=== PATIENT | male | born 1995 | race Caucasian/White ===

== ENCOUNTER 2019-08-30 07:00 | Emergency (ER) | payer SELFPAY ==
[2019-08-30] MEDS ORDERED: NORMAL SALINE 1000 ML 1,000 ML IV ONE (07:50)
[2019-08-30 08:30] LABS: ABSOLUTE LYMPHOCYTES (AUTO) 0.6 10^3/uL (0.5-4.7); ABSOLUTE MONOCYTES (AUTO) 0.4 10^3/uL (0.1-1.4); ABSOLUTE NEUT (AUTO) 3.1 10^3/uL (1.7-8.2); EOSINOPHILS % (AUTO) 0.2 % (0-6); HEMATOCRIT 41.5 % (37.9-51.0); HEMOGLOBIN 14.3 g/dL (13.5-17.0); LYMPHOCYTES % (AUTO) 14.3 % (13-45); MEAN CORPUSCULAR HEMOGLOBIN 31.1 pg (27.0-33.4); MEAN CORPUSCULAR HGB CONC 34.4 g/dL (32.0-36.0); MEAN CORPUSCULAR VOLUME 90 fl (80-97); MONOCYTES % (AUTO) 8.8 % (3-13); PLATELET COUNT 187 10^3/uL (150-450); RED BLOOD COUNT 4.59 10^6/uL (4.35-5.55); RED CELL DISTRIBUTION WIDTH 12.7 % (11.5-14.0); SEGMENTED NEUTROPHILS % (AUTO) 75.7 % (42-78); TOTAL CELLS COUNTED % (AUTO) 100 %; WHITE BLOOD COUNT 4.1 10^3/uL (4.0-10.5)
[2019-08-30 08:44] LABS: ALBUMIN 4.4 g/dL (3.5-5.0); ALKALINE PHOSPHATASE 42 U/L (38-126); ANION GAP 11 (5-19); ASPARTATE AMINO TRANSFERASE 36 U/L (17-59); BILIRUBIN,DIRECT 0.2 mg/dL (0.0-0.4); BILIRUBIN,TOTAL 0.9 mg/dL (0.2-1.3); BLOOD UREA NITROGEN 14 mg/dL (7-20); CALCIUM 9.1 mg/dL (8.4-10.2); CARBON DIOXIDE 28 mmol/L (22-30); CHLORIDE 101 mmol/L (98-107); GLUCOSE 83 mg/dL (75-110); POTASSIUM 4.8 mmol/L (3.6-5.0); TOTAL PROTEIN 7.8 g/dL (6.3-8.2)
[2019-08-30] MEDS ORDERED: ONDANSETRON ODT 4 MG TAB (6 TAB/ER DISP) PO PRN (10:52)
[2019-08-30] MEDS ORDERED: ONDANSETRON HCL INJ/PF 4 MG/2 ML SDV IV ONE (10:52)
--- NOTE | 2019-08-30 10:52 | ER Document Report ---
ED General - General Chief Complaint: Nausea/Vomiting Stated Complaint: FLU LIKE SYMPTOMS/FEVER Time Seen by Provider: 08/30/19 10:37 TRAVEL OUTSIDE OF THE [place] IN LAST 30 DAYS: No - HPI Notes: Patient is a 24-year-old male with no significant medical history presents to the emergency department for evaluation of cough and congestion. He has also been vomiting. He states his symptoms began night. He has had chills and sweating, but they are unaware of any chauncey fevers. He has had about 4-5 episodes of nonbloody, nonbilious emesis in the last 24 hours. He is still urinating normally, denies any dysuria, hematuria, urinary frequency. He states he has not had a bowel movement since before his illness started, probably about 24 hours prior to that. He states that this is not abnormal for him. He states he has had a mild headache intermittently, but really denies any pain. He is concerned he might have the flu. He does not currently have a primary care provider. - Related Data Allergies/Adverse Reactions: No Known Allergies Allergy (Verified 08/30/19 07:41) Home Medications: None Past Medical History - General Information source: Patient - Social History Smoking Status: Never Smoker Chew tobacco use (# tins/day): No Frequency of alcohol use: None Drug Abuse: None Family History: None Patient has suicidal ideation: No Patient has homicidal ideation: No - Medical History Medical History: Negative - Immunizations Immunizations up to date: Yes Hx Diphtheria, Pertussis, Tetanus Vaccination: No Review of Systems - Review of Systems Constitutional: See HPI EENT: No symptoms reported Cardiovascular: No symptoms reported Respiratory: See HPI Gastrointestinal: See HPI Genitourinary: No symptoms reported Musculoskeletal: No symptoms reported Skin: No symptoms reported Neurological/Psychological: No symptoms reported Physical Exam - Vital signs Vitals: Temp Pulse Resp BP Pulse Ox 98.4 F 99 18 100/48 L 95 08/30/19 07:40 08/30/19 07:40 08/30/19 07:40 08/30/19 07:40 08/30/19 07:40 - Notes Notes: Vital signs reviewed, please refer to chart. Head is normocephalic, atraumatic. Pupils equal round, reactive to light. Neck is supple without meningismus. Heart is regular rate and rhythm. Lungs are clear to auscultation bilaterally. Abdomen is soft, nontender, normoactive bowel sounds throughout. Extremities without cyanosis, clubbing. Posterior calves are nontender. Peripheral pulses are equal. Skin is warm and dry. Patient is awake, alert, neurological exam is nonfocal. Course - Re-evaluation Re-evalutation: 08/30/19 10:49 Patient presents emergency department for evaluation. His findings are consistent with an influenza-like illness. At this point, however, this patient is stable. He is feeling improved after fluids. I will send him home with a small amount of Zofran. I do not see any indication for influenza treatment at this time, and at any rate the patient does not have any prescription coverage. We will give him instructions on supportive care, nausea medication, and close follow-up. He is to return to the ED with worsening or new concerning symptoms of any sort, otherwise [facility]. - Vital Signs Vital signs: Temp Pulse Resp BP Pulse Ox 98.4 F 99 18 100/48 L 95 08/30/19 07:40 08/30/19 07:40 08/30/19 07:40 08/30/19 07:40 08/30/19 07:40 - Laboratory Result Diagrams: 08/30/19 08:04 08/30/19 08:04 Discharge - Discharge Clinical Impression: Influenza-like illness, Nausea and vomiting Condition: Stable Disposition: HOME, SELF-CARE Instructions: Vomiting ([facility]), Influenza ([facility]) [id number] Additional Instructions: Although you were not tested, your findings are consistent with influenza. Rest, stay well-hydrated. Avoid contact with a very young, very old, or any people with significant medical issues. Rest, stay well-hydrated with small, frequent sips of fluids. Advance to a very bland diet as tolerated. Zofran as needed for severe nausea. If you develop difficulty breathing, worsening vomiting, decreased urination, or any other new or concerning symptoms, please return immediately to the emergency department for reevaluation.
[2019-08-30 11:35] VITALS: BP 96/48
== END 2019-08-30 11:35 | disposition home or self-care (01) ==
LOC: ER 07:00
DX: J11.1 Influenza due to unidentified influenza virus with other respiratory manifestations (principal); R11.2 Nausea with vomiting, unspecified; R05 Cough; R09.81 Nasal congestion
CPT/HCPCS: 99283; 96361; 96374; 36415; 85025; 80053; J2405; J7030